=== PATIENT | male | born 1995 | race Two or more races ===

== ENCOUNTER 2021-11-28 20:24 | Emergency (ER) | payer MEDICAID ==
[~2021-11-28] VITALS: Ht 167.6 cm; Wt 59.0 kg
[2021-11-28 20:49] LABS: BASOPHILS % (AUTO) 0.9 % (0.0-2.0); EOSINOPHILS % (AUTO) 0.5 % (0.0-6.0); HEMATOCRIT 45 % (39-51); HEMOGLOBIN 15.2 g/dL (13.5-17.5); LYMPHOCYTES % (AUTO) 40.6 % (20.0-44.0); MEAN CORPUSCULAR HGB CONC 34 g/dl (31.0-36.0); MEAN CORPUSCULAR VOLUME 91 fL (80-96); MONOCYTES # (AUTO) 0.4 K/uL (0.1-1.30); MONOCYTES % (AUTO) 7.4 % (2.0-12.0); NEUTROPHILS # (AUTO) 2.4 K/uL (1.8-8.9); NEUTROPHILS % (AUTO) 50.6 % (43.0-81.0); PLATELET COUNT (AUTO) 206 K/uL (150-450); RED BLOOD CELL COUNT(AUTO) 4.95 MIL/uL (4.5-6.0); WHITE BLOOD COUNT (AUTO) 4.8 K/uL (4.3-11.0)
[2021-11-28 21:05] LABS: CALCIUM, SERUM 9.3 mg/dL (8.5-10.1); CREATININE 0.8 mg/dL (0.6-1.3); POTASSIUM 3.7 mmol/L (3.5-5.1)
[2021-11-28 21:08] LABS: ALBUMIN 4.7 g/dL (3.4-5.0); BILIRUBIN,DIRECT 0.1 mg/dL (0.0-0.2); BILIRUBIN,TOTAL 0.3 mg/dL (0.2-1.0); TOTAL PROTEIN, SERUM 8.4 g/dL (6.4-8.2)
--- NOTE | 2021-11-28 21:45 | NUR ---
BLOOD AND URINE COLLECTED AND SENT TO LAB
--- NOTE | 2021-11-28 21:45 | NUR ---
COVID SWAB DONE AND SENT TO LAB
[2021-11-28 22:09] LABS: BILIRUBIN,URINE NEGATIVE (NEGATIVE); COLOR,URINE YELLOW (YELLOW); LEUKOCYTE ESTERASE ,URINE NEGATIVE (NEGATIVE); NITRITE, URINE NEGATIVE (NEGATIVE); PROTEIN,URINE NEGATIVE (NEGATIVE); UGLUCOSE NEGATIVE (NEGATIVE); UROBILINOGEN,URINE 0.2 EU/dL (0.2)
[2021-11-28 22:11] LABS: BACTERIA,URINE Rare /HPF (None Seen); MUCUS,URINE Many /LPF (None Seen); RBC,URINE 0-2 /HPF (0-2); SQUAMOUS EPITHELIAL CELL,UR Few /HPF (None Seen); WBC,URINE 0-2 /HPF (0-3)
--- NOTE | 2021-11-29 02:26 | NUR ---
PATIENT NO LONGER WANTS TO GO VOLUNTARY TO A PSYCH FACILITY. DENIES S/I H/I. BELONGINGS GIVEN BACK TO PATIENT.
[2021-11-29 02:27] VITALS: BP 132/80
--- NOTE | 2021-11-29 02:27 | NUR ---
Patient discharged to home in stable condition. Written and verbal after care instructions given. Patient verbalizes understanding of instruction.
--- NOTE | 2021-11-29 02:36 | NUR ---
WELL AWARE, ALSO CHARGE NURSE CARMEN VIDAL RN
== END 2021-11-29 04:38 | disposition home or self-care (01) ==
LOC: ER 20:26
DX: R45.851 Suicidal ideations (principal); F41.9 Anxiety disorder, unspecified; R00.0 Tachycardia, unspecified; Z20.822 Contact with and (suspected) exposure to COVID-19
CPT/HCPCS: 99285; 93005; 85025; 80048; 80076; 81001; 36415; 87426; 80143; 80320; 80307; C9803; G0480